=== PATIENT | male | born 1965 | race Caucasian/White ===

== ENCOUNTER 2019-02-14 10:27 | Emergency (ER) | payer SELFPAY ==
[~2019-02-14] VITALS: Ht 162.6 cm; Wt 88.1 kg
[~2019-02-14 10:27] MED LIST: CEPH-443 PO; IBUP-1542 PO
[2019-02-14 10:33] VITALS: Ht 162.6 cm; Wt 88.1 kg
[2019-02-14] MEDS ORDERED: SOD CHLORIDE 0.9% 1,000 ML IV STA (11:43)
[2019-02-14] MEDS ORDERED: IBUPROFEN 600 MG TAB PO ONE (12:00)
--- NOTE | 2019-02-14 14:49 | ERD ---
ER Documentation Chief Complaint Chief Complaint weakness, on/off back pain, fevers x15 days; sent by PCP today HPI This is a 53-year-old man complaining of intermittent fevers x10 to 15 days, he saw his PMD who referred him here to "rule out malaria". Patient denies recent travel or sick contacts, he has had no rash, no headache or blurry vision, no sore throat, no cough or URI symptoms, no abdominal pain, no vomiting or diarrh ea. Patient states he has had tactile fevers intermittently throughout the day for about 2 weeks but denies episodic diaphoresis and denies neck pain or neck stiffness. 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 ROS All systems reviewed and are negative except as per history of present illness. Medications Home Meds Active Scripts Cephalexin* (Keflex*) 500 Mg Capsule, 500 MG PO QID for 7 Days, CAP Prov:CARLOTTA MCKEON MD 02/14/19 Ibuprofen* (Motrin*) 600 Mg Tab, 600 MG PO Q8 PRN for PAIN AND/OR INFLAMMATION, #30 TAB Prov:CARLOTTA MCKEON MD 02/14/19 Allergies Allergies: Coded Allergies: No Known Allergy (Unverified , 02/14/19) PMhx/Soc Medical and Surgical Hx: pt denies Medical Hx, pt denies Surgical Hx Hx Alcohol Use: Yes (OCCASIONAL) Hx Substance Use: No Hx Tobacco Use: No Smoking Status: Never smoker FmHx Family History: No diabetes Physical Exam Vitals Vital Signs Date Temp Pulse Resp B/P (MAP) Pulse Ox O2 O2 Flow FiO2 Time Delivery Rate 02/14/19 99.1 99 16 136/84 98 Room Air 13:30 (101) 02/14/19 100.9 108 20 143/83 98 10:33 (103) Physical Exam GENERAL: Well-developed, well-nourished, well-hydrated, febrile HEENT: Moist mucous membranes, pink conjunctiva, no cervical spine tenderness or step-off deformities, no goiter, no jaundice or icterus, extraocular movements intact without pain. No submandibular induration, and no pharyngeal erythema NEURO: Alert and oriented 3, cranial nerves II through XII intact bilaterally, pupils equal round reactive to light, no focal deficits or facial asymmetry, sensation intact distally Strength 5/5 in upper and lower extremities bilaterally CARDIAC: Tachycardic and regular, no murmurs rubs or gallops LUNGS: Clear bilaterally no wheezing crackles or stridor ABDOMEN: Soft nontender, no guarding, no rigidity, no rebound, no psoas sign no obturator sign. Normoactive bowel sounds SKIN: Warm and dry to touch, no abrasions, contusions, or hematomas, no lacerations, no ecchymosis, no target lesions, and without ulcers EXTREMITIES: No clubbing cyanosis or edema, calves are bilaterally symmetrical, no Homans sign, no popliteal cord sign. Distal pulses equal and bilateral PSYCH: Normal affect without agitation or irritability Result Diagram: 02/14/19 1211 02/14/19 1211 Results 24 hrs Laboratory Tests Test 02/14/19 11:50 02/14/19 12:11 02/14/19 12:40 Urine Color SANJU[place]ITA Urine Clarity SLIGHTLY CLOUDY Urine pH 5.0 Urine Specific Tea 1.031 Urine Ketones 1+ mg/dL Urine Nitrite NEGATIVE mg/dL Urine Bilirubin NEGATIVE mg/dL Urine Urobilinogen 2+ mg/dL Urine Leukocyte Esterase NEGATIVE Ti/ul Urine Microscopic RBC 3 /HPF Urine Microscopic WBC 3 /HPF Urine Mucus MANY /HPF Urine Hemoglobin 2+ mg/dL Urine Glucose NEGATIVE mg/dL Urine Total Protein 2+ mg/dl White Blood Count 3.2 10^3/ul Red Blood Count 3.91 10^6/ul Hemoglobin 10.9 g/dl Hematocrit 32.1 % Mean Corpuscular Volume 82.1 fl Mean Corpuscular Hemoglobin 27.9 pg Mean Corpuscular 34.0 g/dl Hemoglobin Concent Red Cell Distribution Width 12.0 % Platelet Count 122 10^3/UL Mean Platelet Volume 9.4 fl Immature Granulocytes % 1.000 % Neutrophils % 76.8 % Lymphocytes % 11.7 % Monocytes % 10.2 % Eosinophils % 0.0 % Basophils % 0.3 % Nucleated Red Blood Cells % 0.0 /100WBC Immature Granulocytes # 0.030 10^3/ul Neutrophils # 2.4 10^3/ul Lymphocytes # 0.4 10^3/ul Monocytes # 0.3 10^3/ul Eosinophils # 0.0 10^3/ul Basophils # 0.0 10^3/ul Nucleated Red Blood Cells # 0.0 10^3/ul Prothrombin Time 14.8 Sec Prothrombin Time Ratio 1.2 INR International 1.15 Normalized Ratio Activated Partial Thromboplast 48.5 Sec Time Sodium Level 138 mmol/L Potassium Level 3.4 mmol/L Chloride Level 103 mmol/L Carbon Dioxide Level 24 mmol/L Anion Gap 11 Blood Urea Nitrogen 15 mg/dl Creatinine 0.79 mg/dl Est Glomerular Filtrat > 60 mL/min Rate mL/min Glucose Level 121 mg/dl Calcium Level 8.8 mg/dl Total Bilirubin 1.0 mg/dl Direct Bilirubin 0.00 mg/dl Indirect Bilirubin 1.0 mg/dl Aspartate Amino Transf (AST/SGOT) 23 IU/L Alanine 37 IU/L Aminotransferase (ALT/SGPT) Alkaline Phosphatase 135 IU/L Troponin I < 0.012 ng/ml Total Protein 7.5 g/dl Albumin 3.9 g/dl Globulin 3.60 g/dl Albumin/Globulin Ratio 1.08 Lipase 129 U/L CSF Tubes Submitted 4 CSF Volume 4.0 ml CSF Appearance CLEAR CSF Color COLORLESS CSF WBC 2 /cmm CSF RBC 1000 /uL CSF Cell Count Tube # TUBE#1 CSF Mononuclear Cells % (Auto) 100.0 % CSF Polynuclear WBCs (%) 0.0 % CSF Glucose 55 mg/dl CSF Total Protein 31 mg/dl Current Medications Medications Dose Sig/Chun Start Time Status Last (Trade) Ordered Route PRN Stop Time Admin Dose Reason Admin Sodium 1,000 ml @ Q1H STAT 02/14/19 DC 02/14/19 Chloride 1,000 mls/hr IV 11:43 02/14/19 13:47 12:42 Ibuprofen 600 mg ONCE ONCE 02/14/19 DC 02/14/19 (Motrin) PO 12:00 02/14/19 13:47 12:01 Procedures/MDM IV line was established patient was placed on bus monitor rhythm strip revealed a narrow complex tachycardia at 110 bpm with upright P and T waves. Patient was febrile, blood and urine cultures have been ordered results are pending I will follow-up. I administered 1 L normal saline IV and ibuprofen 600 mg p.o. Patient has no signs or symptoms of malaria and definitely has had no recent possible exposure although given his recent fevers and complains of low back pain (although unlikely related) I consented him for lumbar puncture. Lumbar Puncture by me: Patient consented, time out performed, sterilely prepped/draped, anesthetized locally. Anesthesia: 1% lidocaine locally Location: One interspace below the iliac crest Technique: LP needle with stylet for entry and removal of needle Results: Clear CSF fluid No post procedure complications, bleeding, numbness or weakness. CSF results were clear, no elevated WBCs or other abnormal results were found. CBC revealed a mild leukopenia otherwise unremarkable, lecture lites are normal, liver function tests were normal, urinalysis negative for infection. Chest X-ray 1V Interpreted by me: Soft Tissue: No acute abnormalities Bones: No acute abnormalities Mediastinum/Cardiac Silhouette/Lungs: No acute abnormalities CT scan of the abdomen pelvis was negative for acute infectious pathology, stranding around pancreas was noted, please refer to radiologist dictation for full report. Patient has no signs or symptoms of pancreatitis and he defervesced and tachycardia resolved. He is asymptomatic at this time and looks well. He will be discharged to follow-up with PMD. Differential diagnoses considered, included but not limited to acute coronary syndrome, pulmonary embolism, aortic dissection, abdominal aortic aneurysm, sepsis, stroke, meningitis, encephalitis, pneumonia, appendicitis, cholecystiti s, bowel obstruction, pyelonephritis, nephrolithiasis, cystitis, as well as metabolic, hematologic, and electrolyte abnormalities. As well as abscess, cellulitis, fractures, and dislocations. Patient feels much better at this time, and vital signs are normal, symptoms have improved. I did give strict instructions to return to the ED if symptoms continue or worsen, patient will otherwise follow-up with primary care physician. Patient understood instructions and agreed to plan. Disclaimer: Inadvertent spelling and grammatical errors are likely due to EHR/dictation software use and do not reflect on the overall quality of patient care. Also, please note that the electronic time recorded on this note does not necessarily reflect the actual time of the patient encounter. Departure Diagnosis: Primary Impression: Fever Fever type: unspecified Qualified Codes: R50.9 - Fever, unspecified Condition: Good Patient Instructions: Fever Control (Adult) CARLOTTA MCKEON MD Feb 14, 2019 14:49
[2019-02-14 15:14] VITALS: BP 127/78; PULSE 89; RESP 23
== END 2019-02-14 15:15 | disposition home or self-care (01) ==
LOC: E/R 10:27
DX: R50.9 Fever, unspecified (principal); R10.9 Unspecified abdominal pain
CPT/HCPCS: 36415; 62270; 71045; 74176; 80053; 81001; 82945; 83690; 84157; 84484; 85025; 85610; 85730; 86592; 87040; 87070; 87086; 89051; 99285; J7030